=== PATIENT | male | born 2000 | race Caucasian/White ===

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

== ENCOUNTER 2022-07-11 08:45 | Emergency (ER) | payer OTHER ==
[~2022-07-11] VITALS: Ht 175.2 cm; Wt 59.0 kg
[~2022-07-11 08:45] MED LIST changes: +CIPRO500 MG PO; +PERCOCET 5-3251 EACH PO; +ZOFRAN4 MG PO
[2022-07-11 08:59] VITALS: BP 127/82
[2022-07-11 10:00] LABS: BASO % 0.3 % (0.0-1.0); EOS % 0.2 % (1.0-4.0); HEMATOCRIT 45.9 % (42.0-52.0); LYMPH # 1.4 10*3/uL (1.3-4.4); LYMPH % 14.4 % (27.0-41.0); MEAN CELL VOLUME 84.8 fl (80.0-94.0); MEAN CORPUSCULAR HGB 29.2 pg (27.0-31.0); MEAN CORPUSCULAR HGB CONC 34.4 g/dl (33.0-37.0); MEAN PLATELET VOLUME 11.5 fl (9.6-12.3); MONO # 0.4 10*3/uL (0.1-1.0); MONO % 3.9 % (3.0-9.0); NEUT # 7.8 10*3/uL (2.3-7.9); NEUT % 80.9 % (47.0-73.0); PLATELET COUNT AUTOMATED 214 10*3/uL (130-400); RED BLOOD COUNT 5.41 10*6/uL (4.50-5.90); RED CELL DISTRI WIDTH 12.3 % (0-14.5); WHITE BLOOD COUNT 9.7 10*3/uL (4.8-10.8)
[2022-07-11 10:07] LABS: BILIRUBIN Negative (Negative); BLOOD 3+ (Negative); CLARITY Turbid (Clear); COLOR Orange (Yellow); GLUCOSE Negative (Negative); KETONE Trace (Negative); LEUKO ESTERASE 1+ (Negative); NITRITE Negative (Negative); PH 5.5 (4.5-8.0); SPECIFIC GRAVITY 1.025 (1.001-1.030)
[2022-07-11 10:19] LABS: ALKALINE PHOSPHATASE 59 U/L (46-116); BUN 10 mg/dl (9-23); CHLORIDE 104 mmol/L (98-107); LIPASE 26 U/L (12-53); POTASSIUM 3.8 mmol/L (3.4-5.1); SGPT/ALT 13 U/L (10-49); TOTAL PROTEIN 7.9 gm/dL (6.0-8.0)
[2022-07-11 10:27] LABS: BACTERIA 1+; RBC TNTC rbc/hpf (0-2)
[2022-07-11 10:28] LABS: MUCOUS TRACE
[2022-07-11] MEDS ORDERED: ONDANSETRON4 MG SL (11:24)
[2022-07-11] MEDS ORDERED: FLOMAX0.4 MG PO (11:24)
[2022-07-11] MEDS ORDERED: Motrin,Rufen800 MG PO (11:24)
[2022-07-11] MEDS ORDERED: HYDROCODONE-AC1 EAC1 PO (11:24)
== END 2022-07-11 11:28 | disposition home or self-care (01) ==
LOC: ED 08:45
PROVIDERS: Emergency Medicine
DX: N20.1 Calculus of ureter (principal); Z87.442 Personal history of urinary calculi